=== PATIENT | male | born 1970 | race Caucasian/White ===

== ENCOUNTER 2018-10-17 07:45 | Emergency (ER) | payer BC ==
[2018-10-17] MEDS ORDERED: Sodium Chloride 0.9% 1,000 ML IV ONE (08:26)
[2018-10-17] MEDS ORDERED: Ondansetron 4 MG/2 ML SDV IVPUSH ONE (08:26)
[2018-10-17 08:45] LABS: ANION GAP 16.3 mmol/L (5-15); CHLORIDE,CL 103 mmol/L (98-115); SODIUM,NA 139 mmol/L (136-145)
--- NOTE | 2018-10-17 08:49 | EDM.PDOC ---
ED HPI GENERAL MEDICAL PROBLEM - General Chief Complaint: General Stated Complaint: Nausea, diarrhea Time Seen by Provider: 10/17/18 08:41 Source of Information: Reports: Patient History Limitations: Reports: No Limitations - History of Present Illness INITIAL COMMENTS - FREE TEXT/NARRATIVE: Patient is a 48-year-old gentleman who presents to the emergency department this morning with a complaint of nausea, vomiting, diarrhea, and bloody nose. Patient states at approximately 2300 last night, his stomach felt crampy, had diarrhea, and then became nauseous and vomited once. Since then, he had four more bowel movements and has vomited twice. Patient states abdomen felt crampy prior to diarrhea and then spontaneously resolved. During the last episode of vomiting and dry heaving, he noticed small amount of blood from left nare and became concerned. Patient states that he attended [facility] yesterday, did consume various meats and salads. Patient denies fever, chest pain, shortness of breath , blood in stool, out of country travel, or aware of anyone else at [facility] that is also sick. Onset: Gradual Onset Date: 10/16/18 Onset Time: 23:00 Duration: Hour(s): Location: Reports: Abdomen Quality: Reports: Other (Crampy) Improves with: Reports: None Worsens with: Reports: None Associated Symptoms: Reports: Nausea/Vomiting. Denies: Chest Pain, Diaphoresis , Fever/Chills, Headaches, Shortness of Breath - Related Data Allergies Allergy/AdvReac Type Severity Reaction Status Date / Time No Known Drug Allergies Allergy Other Verified 10/17/18 07:54 Past Medical History HEENT History: Reports: None Cardiovascular History: Reports: None Respiratory History: Reports: None Genitourinary History: Reports: None Musculoskeletal History: Reports: None Neurological History: Reports: None Psychiatric History: Reports: None Endocrine/Metabolic History: Reports: None Hematologic History: Reports: None Immunologic History: Reports: None Oncologic (Cancer) History: Reports: None Dermatologic History: Reports: None - Infectious Disease History Infectious Disease History: Reports: Chicken Pox - Past Surgical History HEENT Surgical History: Reports: None Cardiovascular Surgical History: Reports: None Respiratory Surgical History: Reports: None GI Surgical History: Reports: Hernia Repair/Other Male Surgical History: Reports: None Neurological Surgical History: Reports: None Musculoskeletal Surgical History: Reports: None Dermatological Surgical History: Reports: None Social & Family History - Family History Family Medical History: Noncontributory ED ROS GENERAL - Review of Systems Review Of Systems: ROS reveals no pertinent complaints other than HPI. Constitutional: Reports: No Symptoms HEENT: Reports: No Symptoms Respiratory: Reports: No Symptoms Cardiovascular: Reports: No Symptoms Endocrine: Reports: No Symptoms GI/Abdominal: Reports: Abdominal Pain, Diarrhea, Nausea, Vomiting. Denies: Black Stool, Bloody Stool, Hematemesis, Hematochezia, Mucous in Stool : Reports: No Symptoms Musculoskeletal: Reports: No Symptoms Skin: Reports: No Symptoms Neurological: Reports: No Symptoms Psychiatric: Reports: No Symptoms Hematologic/Lymphatic: Reports: No Symptoms Immunologic: Reports: No Symptoms ED EXAM, GENERAL - Physical Exam Exam: See Below Exam Limited By: No Limitations General Appearance: Alert, WD/WN, No Apparent Distress Eye Exam: Bilateral Eye: Normal Inspection Nose: Normal Inspection, Normal Mucosa, No Blood Throat/Mouth: Normal Inspection, Normal Oropharynx, No Airway Compromise Head: Atraumatic, Normocephalic Neck: Normal Inspection, Supple, Non-Tender Respiratory/Chest: No Respiratory Distress, Lungs Clear, Normal Breath Sounds, No Accessory Muscle Use, Chest Non-Tender Cardiovascular: Regular Rate, Rhythm, No Murmur GI/Abdominal: Normal Bowel Sounds, Soft, Non-Tender, No Organomegaly, No Distention, No Abnormal Bruit, No Mass Back Exam: Normal Inspection. No: CVA Tenderness (L), CVA Tenderness (R) Extremities: Normal Inspection, No Pedal Edema Neurological: Alert, Oriented, Normal Cognition Psychiatric: Normal Affect, Normal Mood Skin Exam: Warm, Dry, Intact, Normal Color, No Rash Lymphatic: No Adenopathy Course - Vital Signs Last Recorded V/S: Last Vital Signs Temp 97.8 F 10/17/18 09:06 Pulse 75 10/17/18 09:06 Resp 18 10/17/18 09:06 BP 144/84 H 10/17/18 09:06 Pulse Ox - Orders/Labs/Meds Orders: Active Orders 24 hr Category Date Time Status Sodium Chloride 0.9% [Normal Saline] 1,000 ml Med 10/17/18 08:26 Active IV .BOLUS Medication Orders Sodium Chloride (Normal Saline) 1,000 mls @ 999 mls/hr IV .BOLUS ONE Stop: 10/17/18 09:26 Last Admin: 10/17/18 08:49 Dose: 999 mls/hr Labs: Laboratory Tests 10/17/18 10/17/18 Range/Units 08:05 08:05 WBC 8.33 (5.00-10.00) 10^3/uL RBC 4.79 (4.50-6.00) 10^6/uL Hgb 14.9 (13.0-17.0) g/dL Hct 42.8 (40.0-52.0) % MCV 89.4 (82.0-92.0) fL MCH 31.1 H (27.0-31.0) pg MCHC 34.8 (32.0-36.0) g/dL RDW 12.8 (11.5-14.5) % Plt Count 341 (150-400) 10^3/uL MPV 11.1 H (7.4-10.4) fL Immature Gran % (Auto) 0.1 (0.0-5.0) % Neut % (Auto) 58.3 (50.0-70.0) % Lymph % (Auto) 31.5 (20.0-40.0) % [place] % (Auto) 5.6 (2.0-8.0) % Eos % (Auto) 4.1 H (1.0-3.0) % Baso % (Auto) 0.4 (0.0-1.0) % Immature Gran # (Auto) 0.01 (0.00-0.50) 10^3/uL Neut # (Auto) 4.86 (2.50-7.00) 10^3/uL Lymph # (Auto) 2.62 (1.00-4.00) 10^3/uL [place] # (Auto) 0.47 (0.10-0.80) 10^3/uL Eos # (Auto) 0.34 H (0.10-0.30) 10^3/uL Baso # (Auto) 0.03 (0.00-0.10) 10^3/uL Sodium 139 (136-145) mmol/L Potassium 4.3 (3.3-5.3) mmol/L Chloride 103 (98-115) mmol/L Carbon Dioxide 24.0 (21.0-32.0) mmol/L Anion Gap 16.3 H (5-15) mmol/L BUN 19 (6-25) mg/dL Creatinine 0.79 (0.51-1.17) mg/dL Est Cr Clr Drug Dosing TNP Estimated GFR (MDRD) > 60 mL/min Glucose 97 (75 - 99) mg/dL Calcium 8.8 (8.7-10.3) mg/dL Total Bilirubin 0.2 (0.2-1.0) mg/dL AST 26 (15-37) U/L ALT 48 (12-78) U/L Alkaline Phosphatase 82 (46-116) IU/L Total Protein 7.8 (6.4-8.2) g/dL Albumin 3.88 (3.00-4.80) g/dL Lipase 105 (73-393) U/L Meds: Medications Generic Name Dose Route Start Last Admin Trade Name Freq PRN Reason Stop Dose Admin Sodium Chloride 1,000 mls @ 999 mls/hr 10/17/18 08:26 10/17/18 08:49 Normal Saline IV 10/17/18 09:26 999 mls/hr .BOLUS ONE Administration Discontinued Medications Generic Name Dose Route Start Last Admin Trade Name Freq PRN Reason Stop Dose Admin Ondansetron HCl 4 mg 10/17/18 08:26 10/17/18 08:50 Zofran IVPUSH 10/17/18 08:27 4 mg ONETIME ONE Administration - Re-Assessments/Exams Free Text/Narrative Re-Assessment/Exam: 10/17/18 09:02 Patient afebrile, vital signs stable, nausea and abdominal discomfort resolved. Departure - Departure Time of Disposition: 09:11 Disposition: Home, Self-Care 01 Clinical Impression: Vomiting and diarrhea - Discharge Information Instructions: Nausea and Vomiting, Adult, [id number], Diarrhea, Adult, Easy- to-Read, Probiotics Referrals: PCP,None [Primary Care Provider] - Forms: ED Department Discharge Additional Instructions: Follow-up with your PCP in next 2-3 days. Return to emergency department sooner if symptoms continue or worsen. - My Orders Last 24 Hours: My Active Orders 10/17/18 08:26 Sodium Chloride 0.9% [Normal Saline] 1,000 ml IV .BOLUS - Assessment/Plan Last 24 Hours: My Active Orders 10/17/18 08:26 Sodium Chloride 0.9% [Normal Saline] 1,000 ml IV .BOLUS Assessment:: Nausea, vomiting, diarrhea Plan: Follow-up with PCP
== END 2018-10-17 10:00 | disposition home or self-care (01) ==
LOC: KA.ED 07:45
DX: R11.2 Nausea with vomiting, unspecified (principal); R19.7 Diarrhea, unspecified
CPT/HCPCS: 36415; 80053; 83690; 85025; 96361; 96374; 99283-25; J2405; J7030

== ENCOUNTER 2019-01-07 09:43 | Emergency (ER) | payer BC ==
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
== END 2019-01-07 11:21 | disposition home or self-care (01) ==
LOC: KA.ED 09:43
DX: M75.42 Impingement syndrome of left shoulder (principal); G56.22 Lesion of ulnar nerve, left upper limb; F17.210 Nicotine dependence, cigarettes, uncomplicated; Z79.899 Other long term (current) drug therapy
CPT/HCPCS: 73030-LT; 99284-25

== ENCOUNTER 2019-02-07 00:08 | Observation (INO) | payer BC ==
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
[2019-02-07] MEDS ORDERED: Lidocaine 1% with EPINEPHrine 1:100,000 20 ML MDV ONE (01:15)
[2019-02-07 01:23] LABS: ANION GAP 15.2 mmol/L (5-15); CHLORIDE,CL 106 mmol/L (98-115); SODIUM,NA 141 mmol/L (136-145)
[2019-02-07] MEDS ORDERED: Ketorolac 30 MG/ML SDV IVPUSH ONE (01:56)
[2019-02-07] MEDS ORDERED: HYDROmorphone 1 MG/ML Syringe IVPUSH ONE (01:56)
[2019-02-07] MEDS ORDERED: Ketorolac 30 MG/ML SDV ONE (01:56)
[2019-02-07] MEDS ORDERED: HYDROmorphone 1 MG/ML Syringe ONE (01:56)
[2019-02-07] MEDS ORDERED: Acetaminophen 325 MG Tab PO PRN (03:26)
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
[2019-02-07] MEDS: Acetaminophen/oxyCODONE 325-5 MG Tab PO PRN ×4 (09:18→23:15)
--- NOTE | 2019-02-07 13:22 | CR ---
[id number] RAD/RAD Clavicle Left EXAM: LEFT CLAVICLE 2 VIEWS INDICATION: CLAVICLE FRACTURE SEEN ON CT. COMPARISON: January 07, 2018. DISCUSSION: There is a comminuted fracture of the mid left clavicle with just over one shaft width inferior displacement of the main distal fracture segment. IMPRESSION: 1. Acute comminuted and significantly displaced mid clavicle fracture. Gordon Brumfield MD 02/07/19 7842 Thank you for allowing us to participate in the care of your patient.
[2019-02-08] MEDS: Acetaminophen/oxyCODONE 325-5 MG Tab PO PRN (06:16)
[2019-02-08 07:45] LABS: ANION GAP 15.9 mmol/L (5-15); CHLORIDE,CL 103 mmol/L (98-115); SODIUM,NA 138 mmol/L (136-145)
[2019-02-08] MEDS ORDERED: Ondansetron 4 MG Tab.DIS PO ONE (08:15)
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
== END 2019-02-08 09:25 | disposition home or self-care (01) ==
LOC: KA.ED 00:08 → KA.MS 03:00
PROVIDERS: ADMIT Internal Medicine; ATTEND Internal Medicine
DX: S42.022A Displaced fracture of shaft of left clavicle, initial encounter for closed fracture (principal); S01.112A Laceration without foreign body of left eyelid and periocular area, initial encounter; S22.32XA Fracture of one rib, left side, initial encounter for closed fracture; S01.01XA Laceration without foreign body of scalp, initial encounter; V20.4XXA Motorcycle driver injured in collision with pedestrian or animal in traffic accident, initial encounter
CPT/HCPCS: 12002; 12013; 36415; 70450; 70486; 71250; 73000-LT; 74176; 80048; 85025; 96374; 96375; 99285-25; A9270-GY; G0378; G0480; J1170; J1885

== ENCOUNTER 2019-03-17 13:39 | Emergency (ER) | payer BC ==
--- NOTE | 2019-03-17 14:42 | CR ---
[id number] RAD/RAD Clavicle Left EXAM: 2 VIEWS LEFT CLAVICLE. INDICATION: PAIN. COMPARISON: February 20, 2019. DISCUSSION: Again identified are postsurgical changes following internal fixation of left clavicular fracture. The medial aspect of the fabi appears to have displaced slightly from the superior images of the clavicular cortex. Additionally the most medial screw appears to have retracted by approximately 2 mm. IMPRESSION: 1. As above. Steve Ngo DO 03/17/19 1440 Thank you for allowing us to participate in the care of your patient.
--- NOTE | 2019-03-17 14:43 | CR ---
[id number] RAD/RAD Shoulder Left 2V Min EXAM: 3 VIEWS LEFT SHOULDER. INDICATION: PAIN. COMPARISON: None. DISCUSSION: No fracture, dislocation or other acute osseous abnormality. Again identified are postsurgical changes following internal fixation of left clavicular fracture described on separately dictated clavicular films. IMPRESSION: 1. No acute osseous abnormalities. Steve Ngo DO 03/17/19 1441 Thank you for allowing us to participate in the care of your patient.
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
== END 2019-03-17 14:45 | disposition home or self-care (01) ==
LOC: KA.ED 13:39
DX: S42.022D Displaced fracture of shaft of left clavicle, subsequent encounter for fracture with routine healing (principal); F17.210 Nicotine dependence, cigarettes, uncomplicated; Z96.89 Presence of other specified functional implants; X58.XXXD Exposure to other specified factors, subsequent encounter
CPT/HCPCS: 73000-LT; 73030-LT; 99283-25